=== PATIENT | male | born 1965 | race Hispanic/Latino ===

== ENCOUNTER 2019-01-31 07:04 | Observation (INO) | payer OTHER ==
[~2019-01-31] VITALS: Ht 172.7 cm; Wt 164.8 kg
[2019-01-31] MEDS ORDERED: ASPIRIN 81 MG CHEW TAB PO STA (07:07)
[2019-01-31] MEDS ORDERED: ONDANSETRON HCL INJ 2MG/ML 2ML 2 MG/ML VIAL IV STA (07:35)
[2019-01-31] MEDS ORDERED: MORPHINE SULFATE 2 MG/ML SYR 1ML IV STA (07:35)
[2019-01-31] MEDS ORDERED: NITROGLYCERIN 2% OINT 1 GM PKT TOP ONE (07:45)
[2019-01-31] MEDS ORDERED: METOPROLOL TARTRATE 25 MG TAB PO ONE (07:45)
[2019-01-31 07:57] LABS: INR 0.99; PARTIAL THROMBOPLASTIN TIME 32.9 seconds (23.8-35.5); PROTHROMBIN TIME 13.6 seconds (11.9-14.5)
[2019-01-31 08:06] LABS: ALANINE AMINOTRANSFERASE 40 IU/L (0-55); ALBUMIN 3.7 g/dL (3.5-5.0); ALBUMIN/GLOBULIN RATIO 0.9 (0.8-2.0); ALKALINE PHOSPHATASE 103 IU/L (40-150); ANION GAP 11.5 mmol/L (8-16); BLOOD UREA NITROGEN 15 mg/dL (7-26); BUN/CREATININE RATIO 15 (6-25); CALCIUM 9.2 mg/dL (8.4-10.2); CARBON DIOXIDE 27 mmol/L (22-29); CHLORIDE 102 mmol/L (98-107); CREATINE KINASE 120 IU/L (30-200); CREATININE, SERUM 1.01 mg/dL (0.72-1.25); EST GLOMERULAR FILTRATION RATE > 60 ML/MIN (60-); GLUCOSE 100 mg/dL (74-118); POTASSIUM 3.5 mmol/L (3.5-5.1); SODIUM 137 mmol/L (136-145)
[2019-01-31] MEDS ORDERED: MORPHINE SULFATE 2 MG/ML SYR 1ML IV PRN (08:15)
[2019-01-31] MEDS ORDERED: ONDANSETRON HCL INJ 2MG/ML 2ML 2 MG/ML VIAL IV PRN ×2 (08:15→09:00)
[2019-01-31] MEDS ORDERED: NITROGLYCERIN 0.4 MG SUBL SL PRN (08:15)
[2019-01-31] MEDS ORDERED: FAMOTIDINE 20 MG/2 ML VIAL IV SCH (08:15)
[2019-01-31 08:38] LABS: HEMATOCRIT 43.9 % (38.2-49.6); HEMOGLOBIN 15.2 g/dL (14.0-18.0); MEAN CORPUSCULAR HEMOGLOBIN 28.2 pg (28-32); MEAN CORPUSCULAR HGB CONC 34.6 g/dL (31-35); MEAN CORPUSCULAR VOLUME 81.4 fL (81-99); RED BLOOD COUNT 5.39 x10e6/uL (4.3-5.7)
[2019-01-31 08:39] LABS: BASOPHILS % 0.5 % (0.0-1.0); EOSINOPHILS # (AUTO) 0.1 (0.0-0.4); EOSINOPHILS % 1.1 % (0.0-6.0); LYMPHOCYTES # (AUTO) 1.7 (1.0-3.2); LYMPHOCYTES % 27.2 % (18.0-39.1); MONOCYTES # (AUTO) 0.4 (0.2-0.8); MONOCYTES % 6.8 % (4.4-11.3); NEUTROPHILS % 63.9 % (38.7-80.0); PLATELET COUNT 234 x10e3/uL (140-360); RED CELL DISTRIBUTION WIDTH 14.1 % (11.7-14.4)
--- NOTE | 2019-01-31 08:50 | NUR ---
H&P cc: CP HPI: 53yoM, PCP Dr.Chandra Cruz, developed mid back discomfort 2 days ago, with radiation to chest. Today worse, with chest pressure; mild sob; no dizzine ss/nausea. Takes only amlodipine at home. Found to have markedly elevated BP. PMH: HTN, obesity PSHx: knee Allergies; see emr Fh/SH; single; no cigs; 1/2 sister (father's daughter) had AR in 50s. Father currently in 80s only HTN Meds; see MAR ROS; no f/c/s/n/V/D/FRANKLIN/vision changes/leg pain/skin ra sh v/s; revd PE tired appearing anicteric ns1s2; no m soft nt nd skin dry n. affect a&ox3; shell LEFT CHEST WALL TENDER; labs/meds; revd A/P: 53yoM Hypertensive Emergency Musculoskeletal chest pain Morbid obesity BMI 57 PLAN CCB/BB; ASA; echo; cardio eval hba1c/lipids; TSH Lovenox/pepcid dispo; Rob Silva MD, PhD.
[2019-01-31] MEDS ORDERED: ACETAMINOPHEN 325 MG TAB PO PRN (09:00)
[2019-01-31] MEDS ORDERED: SENNOSIDES 8.6 MG TAB PO PRN (09:00)
--- NOTE | 2019-01-31 09:21 | Diagnostic Imaging Report ---
EXAMINATION: CHEST SINGLE (PORTABLE) INDICATION: Chest pain, cough COMPARISON: None FINDINGS: Study is limited by underpenetration, likely due to patient body habitus. LINES/TUBES:EKG leads overlie the chest. LUNGS:The lungs are moderately inflated. No focal consolidation. No katie edema. PLEURA:No pleural effusion or pneumothorax. MEDIASTINUM:The cardiomediastinal silhouette appears normal in size and shape. BONES/SOFT TISSUES:No acute osseous injury. ABDOMEN:No free air under the diaphragm. IMPRESSION: Underpenetrated study. No focal pneumonia or katie pulmonary edema. Signed by: Ac Haines MD on 01/31/2019 9:18 AM
[2019-01-31] MEDS: NIFEDIPINE CR 30 MG TAB PO SCH ×2 (09:44→20:51)
[2019-01-31] MEDS: METOPROLOL TARTRATE 25 MG TAB PO SCH ×2 (09:45→20:50)
[2019-01-31 11:56] VITALS: BP 205/108
--- NOTE | 2019-01-31 11:57 | NUR ---
pt arrived on unit via wheelchair from ER; pt awake, alert, oriented X3, in stable condition. will continue to monitor
[2019-01-31 12:36] VITALS: BP 205/108
[2019-01-31 12:57] VITALS: BP 181/109
[2019-01-31] MEDS ORDERED: AMLODIPINE BESY10 MG PO (13:33)
[2019-01-31] MEDS ORDERED: ACETAMINOP325 MG/10 PO (13:33)
[2019-01-31] MEDS: NITROGLYCERIN 2% OINT 1 GM PKT TOP SCH ×2 (13:56→17:08)
--- NOTE | 2019-01-31 13:56 | NUR ---
pt's repeat blood pressure 190/110; Dr. Ricardo gonzales. pt was prescribed 25 mg Hydralazine PO q8h, first dose now.
[2019-01-31] MEDS: HYDRALAZINE HCL 25 MG TAB PO SCH ×2 (13:58→22:05)
[2019-01-31 15:33] VITALS: BP 132/74
[2019-01-31] MEDS: FAMOTIDINE 20 MG TAB PO SCH (17:04)
[2019-01-31] MEDS: ENOXAPARIN SOD INJ 40 MG/0.4 ML SYR SC SCH (17:05)
[2019-01-31 17:23] LABS: CREATINE KINASE MB 1.8 ng/mL (0-5.0)
[2019-01-31 20:00] VITALS: BP 153/91
[2019-01-31 21:00] VITALS: BP 139/68
[2019-02-01] VITALS (8 sets, daily range): BP systolic 149–159; BP diastolic 83–99
[2019-02-01] MEDS: NITROGLYCERIN 2% OINT 1 GM PKT TOP SCH ×2 (00:36→05:49)
[2019-02-01 01:38] LABS: CREATINE KINASE MB 1.5 ng/mL (0-5.0)
[2019-02-01] MEDS: HYDRALAZINE HCL 25 MG TAB PO SCH ×3 (05:49→21:17)
[2019-02-01 05:52] LABS: BASOPHILS % 0.3 % (0.0-1.0); EOSINOPHILS # (AUTO) 0.1 (0.0-0.4); EOSINOPHILS % 0.8 % (0.0-6.0); HEMATOCRIT 46.2 % (38.2-49.6); HEMOGLOBIN 15.8 g/dL (14.0-18.0); LYMPHOCYTES # (AUTO) 2.4 (1.0-3.2); LYMPHOCYTES % 22.7 % (18.0-39.1); MEAN CORPUSCULAR HEMOGLOBIN 27.4 pg (28-32); MEAN CORPUSCULAR HGB CONC 34.2 g/dL (31-35); MEAN CORPUSCULAR VOLUME 80.2 fL (81-99); MONOCYTES # (AUTO) 0.6 (0.2-0.8); MONOCYTES % 5.5 % (4.4-11.3); NEUTROPHILS # (AUTO) 7.5 (2.1-6.9); NEUTROPHILS % 70.3 % (38.7-80.0); PLATELET COUNT 293 x10e3/uL (140-360); RED BLOOD COUNT 5.76 x10e6/uL (4.3-5.7); RED CELL DISTRIBUTION WIDTH 13.9 % (11.7-14.4)
[2019-02-01 06:14] LABS: ALANINE AMINOTRANSFERASE 37 IU/L (0-55); ALBUMIN 3.7 g/dL (3.5-5.0); ALBUMIN/GLOBULIN RATIO 0.9 (0.8-2.0); ALKALINE PHOSPHATASE 113 IU/L (40-150); BLOOD UREA NITROGEN 14 mg/dL (7-26); BUN/CREATININE RATIO 14 (6-25); CALCIUM 9.7 mg/dL (8.4-10.2); CARBON DIOXIDE 25 mmol/L (22-29); CHLORIDE 100 mmol/L (98-107); CHOL/HDL RATIO 5.2 (3.9-4.7); CHOLESTEROL 223 MD/DL (0-199); CREATININE, SERUM 1.01 mg/dL (0.72-1.25); EST GLOMERULAR FILTRATION RATE > 60 ML/MIN (60-); GLUCOSE 114 mg/dL (74-118); HDL CHOLESTEROL 43 MG/DL (40-60); LDL CHOLESTEROL 157 MG/DL (60-130); SODIUM 133 mmol/L (136-145); TRIGLYCERIDES 115 MG/DL (0-149)
--- NOTE | 2019-02-01 06:54 | NUR ---
RECEIVED REPORT FROM OFF-GOING NURSE. WALKING ROUNDS DONE. PATIENT IS RESTING IN BED. NO ACUTE DISTRESS NOTED. CALL LIGHT WITHIN REACH. BED IN THE LOWEST POSITION.
[2019-02-01] MEDS: FAMOTIDINE 20 MG TAB PO SCH ×2 (08:02→16:28)
[2019-02-01] MEDS: ASPIRIN 81 MG ENTERIC COATED PO SCH (08:02)
[2019-02-01] MEDS: NIFEDIPINE CR 30 MG TAB PO SCH ×2 (08:02→20:29)
[2019-02-01] MEDS: METOPROLOL TARTRATE 25 MG TAB PO SCH ×2 (08:02→20:28)
--- NOTE | 2019-02-01 08:25 | NUR ---
IM- progress note O/N no events ROS; no f/c/s/n/V/D/FRANKLIN/vision changes/leg pain/skin ra sh v/s; revd PE tired appearing anicteric ns1s2; no m soft nt nd skin dry n. affect a&ox3; shell LEFT CHEST WALL TENDER; labs/meds; revd A/P: 53yoM Hypertensive Emergency Musculoskeletal chest pain Morbid obesity BMI 57 PLAN CCB/BB; ASA; echo; cardio eval hba1c/lipids; TSH Lovenox/pepcid dispo; 02/01 Hba1c/LDL 5.2/157; titrate BB up; f/u echo and cardio; d/c planning; Rob Silva MD, PhD.
--- NOTE | 2019-02-01 16:20 | Consultation ---
DATE OF CONSULTATION: 01/31/2019 Cardiology Consultation Thank you so much for asking me to see this nice man in consultation. 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 HISTORY OF PRESENT ILLNESS: The patient reports that he has been faithfully taking amlodipine 10 mg daily, but found that evidently lisinopril caused cough and he had then used evidently losartan, which was then recalled and he stopped that and he began to have substernal chest discomfort that lasted all day on Monday and that was still present when he awoke on morning, the . He decided to present to the emergency room, his family doctor, Dr. Cruz. PAST MEDICAL HISTORY: Significant for hypertension, sleep apnea for which he uses a CPAP, morbid obesity. He has had previous muscle strains and other miscellaneous problems. PAST SURGICAL HISTORY: His only surgical history has been arthroscope as a young man. SOCIAL HISTORY: He does not smoke. PHYSICAL EXAMINATION: GENERAL: At this time shows a pleasant, alert man, who is about 5 feet 8 inches tall, weighing 363 pounds. VITAL SIGNS: Presenting blood pressure was around 200/100, now feeling some better, blood pressure about 140/80. HEAD, EYES, EARS, NOSE, and THROAT: Unremarkable. NECK: Very thick. No jugular venous distention or bruits. THORAX: Heart sounds S1 and S2 are equal. No murmurs. LUNGS: Clear. ABDOMEN: Protuberant. Normal bowel sounds. EXTREMITIES: Has no cyanosis, clubbing, or edema. He has multiple tattoos on arms and torso. LABORATORY DATA: Initial cardiac enzymes are normal. Chemistries show sodium 137, potassium 3.5, BUN 15, creatinine 1.0. EKG shows no ST changes. Normal EKG. ASSESSMENT: 1. Hypertensive crisis. 2. Sleep apnea. 3. Morbid obesity. PLAN: We will monitor and adjust medications. We have limited choices for him as we cannot perform nuclear studies or cardiac cath as he is over 350 pounds. Management will be based on clinical course. Thank you for asking me to see him in consultation. MD KAI Tinajero/BARI /[id number]
[2019-02-01] MEDS: ENOXAPARIN SOD INJ 40 MG/0.4 ML SYR SC SCH (16:28)
--- NOTE | 2019-02-01 19:07 | NUR ---
Report given to oncoming nurse. Walking rounds done. Patient is resting in bed. No acute distress noted. Call light within reach. Bed in the lowest position.
--- NOTE | 2019-02-01 19:11 | NUR ---
PT IS SITTING ON THE COUCH. RESPIRATION IS EVEN AND UNLABORED, NO DISTRESS NOTED. BED IN THE LOWEST POSITION, LOCKED, AND CALL LIGHT WITHIN REACH. WILL CONTINUE TO MONITOR.
[2019-02-02 01:02] VITALS: BP 142/87
[2019-02-02] MEDS: HYDRALAZINE HCL 25 MG TAB PO SCH (05:54)
[2019-02-02 05:59] VITALS: BP 128/68
--- NOTE | 2019-02-02 06:44 | NUR ---
RECEIVED REPORT FROM OFF-GOING NURSE. WALKING ROUNDS DONE. PATIENT IS RESTING IN BED. NO ACUTE DISTRESS NOTED. CALL LIGHT WITHIN REACH. BED IN THE LOWEST POSITION.
[2019-02-02] MEDS ORDERED: FAMOTIDINE20 MG PO (07:21)
[2019-02-02] MEDS ORDERED: BENICAR20 MG PO (07:21)
[2019-02-02] MEDS ORDERED: NIFEDIPINE ER30 M1 PO (07:21)
[2019-02-02] MEDS ORDERED: SENOKOT8.6 MG PO (07:21)
[2019-02-02] MEDS ORDERED: ASPIRIN EC81 MG PO (07:21)
[2019-02-02] MEDS ORDERED: METOPROLOL TART50 MG PO (07:21)
[2019-02-02] MEDS ORDERED: HYDRALAZINE HCL25 MG PO (07:21)
--- NOTE | 2019-02-02 07:23 | NUR ---
D/C summary Principal Dx: Hypertensive Emergency Musculoskeletal chest pain Morbid obesity BMI 57 Secondary dx: Obesity PLAN CCB/BB; ASA; echo; cardio eval hba1c/lipids; TSH Lovenox/pepcid dispo; 02/01 Hba1c/LDL 5.2/157; titrate BB up; f/u echo and cardio; d/c planning; 02/02 evaluated by cardiology; due to body habitus, cannot have stress testing. d/c home with BP meds and other meds f/u pcp 1 week and [facility] 2 weeks stable d./c>35mins Rob Silva MD, PhD.
[2019-02-02 07:46] VITALS: BP 129/75
[2019-02-02] MEDS: METOPROLOL TARTRATE 25 MG TAB PO SCH (08:09)
[2019-02-02] MEDS: FAMOTIDINE 20 MG TAB PO SCH (08:09)
[2019-02-02] MEDS: ASPIRIN 81 MG ENTERIC COATED PO SCH (08:09)
[2019-02-02] MEDS: NIFEDIPINE CR 30 MG TAB PO SCH (08:10)
[2019-02-02 08:14] VITALS: BP 129/75
--- NOTE | 2019-02-02 09:20 | NUR ---
PAGED DR. CERVANTES FOR COURTESY CALL DUE TO PATIENT GOING TO BE DISCHARGED PER ATTENDING. DR. FLOWER STEWARDING SUPERVISOR AND NOTIFIED.
--- NOTE | 2019-02-02 09:45 | NUR ---
RECEIVED DC ORDER FROM DR. EVANS. PATIENT IS IN STABLE CONDITION. IV LINE TO RIGHT AC DCD WITH TIP INTACT, PRESSURE APPLIED TO SITE, NO BLEEDING NOTED. DISCHARGE TEACHING PROVIDED TO PATIENT, HE VERBALIZED UNDERSTANDING. DISCHARGE FOLDER WITH PRESCRIPTIONS ON HAND. ALL PERSONAL ITEMS ON HAND. PATIENT ACCOMPANIED TO PRIVATE AUTO BY STAFF.
== END 2019-02-02 09:57 | disposition home or self-care (01) ==
LOC: ER 07:04 → ERHOLD 08:07 → INTOOBSV 08:07 → MED/SURG3 11:57
PROVIDERS: ADMIT Internal Medicine; ATTEND Internal Medicine
DX: I16.1 Hypertensive emergency (principal); R07.89 Other chest pain; E66.01 Morbid (severe) obesity due to excess calories; Z68.36 Body mass index [BMI] 36.0-36.9, adult
CPT/HCPCS: 36415 ×2; 71045; 80053 ×2; 80061; 82550 ×2; 82553 ×2; 83036; 83880; 84443; 84484 ×2; 85025 ×2; 85610; 85730; 93005 ×2; 93306; 99284; G0378 ×3; J1650 ×2; J2270; J2405

== ENCOUNTER 2021-05-29 10:54 | Emergency (ER) | payer OTHER ==
[~2021-05-29] VITALS: Ht 172.7 cm; Wt 181.4 kg
[~2021-05-29 10:54] MED LIST: ACETAMINOP325 MG/10 PO; AMLODIPINE BESY10 MG PO; ASPIRIN EC81 MG PO; BENICAR20 MG PO; FAMOTIDINE20 MG PO; HYDRALAZINE HCL25 MG PO; METOPROLOL TART50 MG PO; NIFEDIPINE ER30 M1 PO; SENOKOT8.6 MG PO
[2021-05-29 11:48] LABS: BASOPHILS % 0.4 % (0.0-1.0); EOSINOPHILS # (AUTO) 0.1 (0.0-0.4); HEMATOCRIT 45.2 % (38.2-49.6); HEMOGLOBIN 15.2 g/dL (14.0-18.0); LYMPHOCYTES % 24.2 % (18.0-39.1); MEAN CORPUSCULAR HEMOGLOBIN 28.1 pg (28-32); MEAN CORPUSCULAR HGB CONC 33.6 g/dL (31-35); MEAN CORPUSCULAR VOLUME 83.7 fL (81-99); MONOCYTES # (AUTO) 0.6 (0.2-0.8); MONOCYTES % 7.7 % (4.4-11.3); NEUTROPHILS # (AUTO) 5.5 (2.1-6.9); NEUTROPHILS % 66.5 % (38.7-80.0); PLATELET COUNT 243 x10e3/uL (140-360)
[2021-05-29 12:04] LABS: ALBUMIN 3.7 g/dL (3.5-5.0); ALBUMIN/GLOBULIN RATIO 0.9 (0.8-2.0); CALCIUM 9.2 mg/dL (8.4-10.2); CREATININE, SERUM 1.06 mg/dL (0.72-1.25)
[2021-05-29] MEDS ORDERED: NIFEDIPINE ER30 M1 PO (12:25)
[2021-05-29] MEDS ORDERED: METOPROLOL TART50 MG PO (12:25)
== END 2021-05-29 13:22 | disposition home or self-care (01) ==
LOC: ER 11:07
DX: Z76.0 Encounter for issue of repeat prescription (principal); I10 Essential (primary) hypertension; G47.33 Obstructive sleep apnea (adult) (pediatric); E66.01 Morbid (severe) obesity due to excess calories
CPT/HCPCS: 36415; 71045; 80053; 83880; 84484; 85025; 93005; 99284